=== PATIENT | female | born 1930 | race Caucasian/White ===

== ENCOUNTER 2018-02-26 15:25 | Inpatient (IN) | payer BC ==
--- NOTE | 2018-02-26 15:39 | PDOC ---
Rapid Medical Evaluation Time Seen by Provider: 02/26/18 15:35 Medical Evaluation: Allergies Allergy/AdvReac Type Severity Reaction Status Date / Time shellfish derived Allergy Intermediate Verified 01/19/13 03:58 I have performed a brief in-person evaluation of this patient. The patient presents with a chief complaint of: wasn't feeling well; saw Dr. Smith today, EKG shows 26bpm. Patient admits to being lightheaded. 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 Smith would like Dr. Coyne as consult Pertinent physical exam findings: HR = 31bpm. I have ordered the following: EKG, CXR, labs The patient will proceed to the ED for further evaluation. Discharge Disposition - Diagnosis Lightheaded - Referrals - Patient Instructions - Post Discharge Activity
--- NOTE | 2018-02-26 16:12 | PDOC ---
Attending Attestation - Resident Resident Name: Thomas Case - ED Attending Attestation I have performed the following: I have examined & evaluated the patient, The case was reviewed & discussed with the resident, I agree w/resident's findings & plan, Exceptions are as noted - HPI HPI: 02/26/18 16:46 87Y hx of hl, hypothryoidism, htn, presents with complaint of lightheadedness. Pt was originally evaluated at Dr. Cannon office and found to have a HR in the 30s with normal bp. On arrival pt ntoes sh ehas felt weak and occasionallightheaded for the past week. She denies any cp, sob, abd pain, n/v, fever/chills, increased leg swelling. pt on bystolic no new meds - Physicial Exam PE: 02/26/18 16:54 GENERAL: The patient is awake, alert, and fully oriented, Nontoxic - in no acute distress. HEAD: Normocephalic, atraumatic. EYES: extraocular movements intact, sclera anicteric, conjunctiva clear. ENT: Normal voice, Moist mucous membranes. NECK: Normal range of motion, supple LUNGS: Breath sounds equal, clear to auscultation bilaterally. No wheezes, no rhonchi, no rales. HEART: Extreme bradycardia ABDOMEN: Soft, nontender, normoactive bowel sounds. No guarding, no rebound. . No CVA tenderness EXTREMITIES: Normal range of motion, +1 bilateral pitting edema. NEUROLOGICAL: No facial assymetry, Normal speech, PSYCH: Normal mood, normal affect. SKIN: Warm, Dry, normal turgor, - Critical Care Time Total Critical Care Time: 40 Critical Care Statement: The care of this patient involved high complexity decision making to prevent further life threatening deterioration of the patient 's condition and/or to evaluate & treat vital organ system(s) failure or risk of failure. - Medical Decision Making 02/26/18 16:55 87-year-old with extreme bradycardia On EKG from the patient's doctor's office suspicious of third-degree heart block Upon arrival patient was immediately seen, placed in bed 10 with pacer pads applied The patient is otherwise asymptomatic, BP 136/81 Will obtain blood work to rule out metabolic derangements, will consult cardiology anticipate Admission to ICU 02/26/18 18:17 lbas reviewed pt bp normal mentating normally HR ranging from high teens to 20s. will admit to ICU for furthe rmangement Heart Score/ECG Review - ECG Impressions Comment:: Rate of 26 Disassociation between Atrial and ventricular beats suspcious for 3rd degree block
--- NOTE | 2018-02-26 16:12 | PDOC ---
History of Present Illness - General Chief Complaint: Lightheaded Stated Complaint: LIGHTHEADED (PCP SENT) Time Seen by Provider: 02/26/18 15:35 - History of Present Illness Initial Comments: 87 year old female with history of HLD, hypothyroidism, and HTN presenting from Dr. Smith's office with severe bradycardia. She denies any current symptoms but her heart rates were as low as 27 on the office EKG. Denies an chest pain, fevers, chills ,nausea, vomiting. diarrhea, or other symptoms. She did not take any of her medications today. 02/26/18 18:40 Past History - Past Medical History Allergies/Adverse Reactions: Allergies Allergy/AdvReac Type Severity Reaction Status Date / Time pistachio nut Allergy Unknown Verified 02/26/18 16:13 Home Medications: Ambulatory Orders Atorvastatin Ca [Lipitor] 10 mg PO HS #0 tablet 01/21/13 Diphenhydramine HCl [Benadryl Capsules -] 25 mg PO HS #0 capsule 01/21/13 Nebivolol [Bystolic -] 5 mg PO DAILY #0 tab 01/21/13 Aspirin [ASA -] 81 mg PO DAILY 02/26/18 Levothyroxine [Synthroid -] 100 mcg PO DAILY@0700 02/26/18 Raloxifene HCl 60 mg PO DAILY 02/26/18 Anemia: No Asthma: No Cancer: No Cardiac Disorders: No CVA: No COPD: No CHF: No DVT: No Dementia: No Diabetes: No GI Disorders: No Disorders: No HTN: Yes Hypercholesterolemia: Yes Liver Disease: No Seizures: No Thyroid Disease: Yes - Immunization History Immunization Up to Date: Yes - Suicide/Smoking/Psychosocial Hx Smoking Status: No Smoking History: Never smoked Have you smoked in the past 12 months: No Number of Cigarettes Smoked Daily: 0 Information on smoking cessation initiated: No Hx Alcohol Use: No Drug/Substance Use Hx: No Substance Use Type: None Hx Substance Use Treatment: No Review of Systems - Review of Systems Constitutional: No: Chills, Diaphoresis, Fever HEENTM: No: Eye Pain, Blurred Vision, Tearing Respiratory: No: Cough, Orthopnea, Shortness of Breath, Wheezing Cardiac (ROS): Yes: Irregular Heart Rate. No: Chest Pain, Edema, Lightheadedness, Palpitations, Syncope, Chest Tightness ABD/GI: No: Diarrhea, Nausea, Vomiting : No: Dysuria, Discharge, Frequency Musculoskeletal: No: Back Pain, Gout, Joint Pain, Joint Swelling Integumentary: No: Lesions, Lumps, Pallor, Pruritus Neurological: No: Headache, Numbness, Paresthesia, Tingling, Tremors Psychiatric: No: Anxiety, Depression Hematologic/Lymphatic: No: Anemia, Blood Clots, Easy Bleeding *Physical Exam - Vital Signs Last Vital Signs Temp Pulse Resp BP Pulse Ox 98.0 F 30 L 16 135/68 98 02/26/18 15:38 02/26/18 15:38 02/26/18 15:38 02/26/18 15:38 02/26/18 15:38 - Physical Exam General Appearance: Yes: Nourished, Appropriately Dressed. No: Apparent Distress HEENT: positive: EOMI, WILFRIDO, Normal ENT Inspection, Normal Voice Neck: positive: Trachea midline, Normal Thyroid, Supple. negative: Tender, Rigid Respiratory/Chest: positive: Lungs Clear, Normal Breath Sounds. negative: Chest Tender, Respiratory Distress, Accessory Muscle Use Cardiovascular: negative: Regular Rhythm, Regular Rate Gastrointestinal/Abdominal: positive: Normal Bowel Sounds, Flat, Soft. negative : Tender Musculoskeletal: positive: Normal Inspection. negative: Vertebral Tenderness Extremity: positive: Normal Capillary Refill, Normal Inspection, Normal Range of Motion. negative: Tender Integumentary: positive: Normal Color, Dry, Warm Neurologic: positive: Fully Oriented, Alert, Normal Mood/Affect, Normal Response , Motor Strength 5/5 ED Treatment Course - LABORATORY CBC & Chemistry Diagram: 02/26/18 16:04 02/26/18 16:04 Medical Decision Making - Medical Decision Making 87 year old female with PMH of hypertension, HLD, and hypothyroidism presenting with severe bradycardia and EKG demonstrating complete AV dissociation. P and QRS intervals march out at their own rhythm. Labs demonstrating MAURISIO, hypothyroidism (TSH> 4) but otherwise normal. Spoke to Dr. Alba (covering for [facility]) and he recommended keeping our pacer pads on and holding Bystolic. Patient signed out to Dr. Villarreal from medicine and Dr. Skelton from ICU. 02/26/18 18:45 *DC/Admit/Observation/Transfer Diagnosis at time of Disposition: Lightheaded - Discharge Dispostion Condition at time of disposition: Stable Decision to Admit order: Yes - Referrals - Patient Instructions - Post Discharge Activity
[2018-02-26 16:30] LABS: BASO % 0.6 % (0-2.0); EOS % 1.2 % (0-4.5); HEMATOCRIT 43.4 % (32.4-45.2); HEMOGLOBIN 14.6 GM/dL (10.7-15.3); MCH 32.8 pg (25.7-33.7); MCHC 33.6 g/dl (32.0-36.0); MEAN CELL VOLUME 97.5 fl (80-96); MEAN PLT VOLUME 9.2 fl (7.5-11.1); MONO % 7.6 % (3.8-10.2); NEUT % 71.6 % (42.8-82.8); PLATELET COUNT 191 K/MM3 (134-434); RBC 4.45 M/mm3 (3.60-5.2); RDW 13.6 % (11.6-15.6); WHITE BLOOD COUNT 10.4 K/mm3 (4.0-10.0)
[2018-02-26 16:39] LABS: ALBUMIN 3.2 g/dl (3.4-5.0); ANION GAP 11 MMOL/L (8-16); BLOOD UREA NITROGEN 29 mg/dL (7-18); CHLORIDE 108 mmol/L (98-107); CO2 25 mmol/L (21-32); GLUCOSE,RANDOM 95 mg/dL (74-106); POTASSIUM 4.5 mmol/L (3.5-5.1); SGOT/AST 55 U/L (15-37); SODIUM 144 mmol/L (136-145)
[2018-02-26 16:45] LABS: ALK PHOS 124 U/L (45-117); BILIRUBIN,TOTAL 0.6 mg/dL (0.2-1.0); CREATININE 1.5 mg/dL (0.55-1.02); SGPT/ALT 109 U/L (12-78); TOT PROT 6.7 g/dl (6.4-8.2)
--- NOTE | 2018-02-26 18:53 | CONSULT ---
Consultation: CONSULT REQUEST: We have been asked to medically evaluate this patient for critical care. HISTORY OF PRESENT ILLNESS: 87 y/o F w/PMH of HTN, hypothyroidism, HLD, mild dementia (AAOX3) presents to ER from PCPs office for severe bradycardia. Pt presents with daughter at bedside who also contributed to history. Pt was not feeling well 1 week ago with according to daughter she did not want to leave the house which is unusual for her and her memory was "fuzzier" than usual but otherwise was at close to her baseline mental status. Pt improved shortly after and was even able to go out to dinner last night with her daughter w/o any complaints. This AM pt again did not want to meet with her friends which is extremely unusual of her so her daughter took her to her PCP who found she had severe bradycardia and sent her to the ER. Pt denies CP, SOB, increased edema in LE, sick contacts, recent travel, being near pets, being outdoors in grassy areas, hx of lyme disease, palpitations, dizziness, fevers, chills, N/V, diarrhea, bloody stools. Pt has a son who has an arrhythmia but she does not know what kind. She only follows with PCP and sees no other doctors. Pt and daughter are also certain that she takes medications as prescribed (on bystolic 10mg at home). Pt lives alone and is able to complete her own ADLs. PMH: HTN, hypothyroidism, HLD, mild dementia (AAOX3) PSHx: Breast cyst removal SH: Denies ever smoking, social alcohol use (infrequent use), denies drug use FH: Son with arrhythmia but unknown type Allergies: NKDA Meds: Atorvastatin 10 mg, bystolic 10 mg, levothyroxine 100 mcg, reloxifene 60 mcg REVIEW OF SYSTEMS: CONSTITUTIONAL: Absent: fever, chills CARDIOVASCULAR: Absent: chest pain, syncope, palpitations, lightheadedness RESPIRATORY: Absent: cough, shortness of breath GASTROINTESTINAL: Absent: abdominal pain, nausea, vomiting, diarrhea, hematochezia GENITOURINARY: Absent: dysuria NEUROLOGIC: Absent: headache, dizziness PHYSICAL EXAMINATION Vital Signs - 24 hr 02/26/18 02/26/18 02/26/18 15:38 16:25 16:41 Temperature 98.0 F Pulse Rate 30 L Pulse Rate [ 25 L Right] Respiratory 16 18 Rate Blood Pressure 135/68 Blood Pressure 136/81 [Left Arm] O2 Sat by Pulse 98 95 100 Oximetry (%) 02/26/18 18:21 Temperature Pulse Rate Pulse Rate [ 21 L Right] Respiratory 18 Rate Blood Pressure Blood Pressure 105/87 [Left Arm] O2 Sat by Pulse Oximetry (%) GENERAL: Awake, alert, and fully oriented, in no acute distress. EYES:extraocular movements intact, sclera anicteric, conjunctiva clear. EARS, NOSE, THROAT: Ears normal, nares patent NECK: Normal range of motion LUNGS: Breath sounds equal, clear to auscultation bilaterally. No wheezes, and no crackles. No accessory muscle use. HEART: Bradycardic ABDOMEN: Soft, nontender, not distended, normoactive bowel sounds. LOWER EXTREMITIES: warm, well-perfused. No calf tenderness. 1+ pitting edema b/ l NEUROLOGICAL: Cranial nerves II-XII grossly intact. Normal speech. Gait not observed. PSYCHIATRIC: Cooperative. Good eye contact. Appropriate mood and affect. SKIN: Warm, dry Laboratory Results - last 24 hr 02/26/18 02/26/18 02/26/18 16:04 16:04 16:27 WBC 10.4 H RBC 4.45 Hgb 14.6 Hct 43.4 MCV 97.5 H MCH 32.8 MCHC 33.6 RDW 13.6 Plt Count 191 MPV 9.2 D Absolute Neuts (auto) 7.4 Neutrophils % 71.6 Lymphocytes % 19.0 D Monocytes % 7.6 Eosinophils % 1.2 Basophils % 0.6 Nucleated RBC % 0 Sodium 144 Potassium 4.5 Chloride 108 H Carbon Dioxide 25 Anion Gap 11 BUN 29 H Creatinine 1.5 H Creat Clearance w eGFR 32.85 Random Glucose 95 Calcium 9.0 Magnesium 2.1 Total Bilirubin 0.6 AST 55 H ALT 109 H Alkaline Phosphatase 124 H Creatine Kinase 45 Troponin I 0.02 Total Protein 6.7 Albumin 3.2 L TSH 02/26/18 16:27 WBC RBC Hgb Hct MCV MCH MCHC RDW Plt Count MPV Absolute Neuts (auto) Neutrophils % Lymphocytes % Monocytes % Eosinophils % Basophils % Nucleated RBC % Sodium Potassium Chloride Carbon Dioxide Anion Gap BUN Creatinine Creat Clearance w eGFR Random Glucose Calcium Magnesium Total Bilirubin AST ALT Alkaline Phosphatase Creatine Kinase Troponin I Total Protein Albumin TSH 4.65 H EKG: Bradycardic / Possibly 3rd degree AV block @ 26 bpm. QTc 458 ms ASSESSMENT/PLAN: 87 y/o F w/PMH of HTN, hypothyroidism, HLD, mild dementia (AAOX3) presents to ER from PCPs office for severe bradycardia. Admitted to ICU for severe bradycardia. Severe Bradycardia -Hemodynamically stable, pt w/o symptoms -Pacer pads placed. Transcutaneous pacing if needed. -Dopamine or atropine if needed -Cardiology consult -Hold bystolic -Utox, trend trops, Lyme -Echo Hypothyroidism -c/w levothyroxine -TSH elevated -DVT ppx -Heparin 5000 units sq TID -FEN -No fluids -Monitor electrolytes -NPO after midnight Dispo: Will monitor in ICU Visit type - Emergency Visit Emergency Visit: Yes Care time: The patient presented to the Emergency Department on the above date and was hospitalized for further evaluation of their emergent condition. - New Patient This patient is new to me today: Yes Date on this admission: 02/26/18 - Critical Care Critical Care patient: Yes Total Critical Care Time (in minutes): 45 Critical Care Statement: The care of this patient involved high complexity decision making to prevent further life threatening deterioration of the patient 's condition and/or to evaluate & treat vital organ system(s) failure or risk of failure.
--- NOTE | 2018-02-26 20:43 | HP ---
CHIEF COMPLAINT: Bradycardia, Nausea and Vomiting PCP: Dr. Smith HISTORY OF PRESENT ILLNESS: This is a 87 y/o woman with a significant medical history of Hypertension, Hypothyroidism, HLD, Mild Dementia. Who presents to the ED from her PCPs office for bradycardia. Patient denies any current symptoms but her heart rates were as low as 27 on the office EKG. Denies an chest pain, fevers, chills ,nausea, vomiting. diarrhea, or other symptoms. She did not take any of her medications today. ER course was notable for: (1) EKG- Severe Bradycadia 20's (2) UTI- +3 leukocyte esterase, 211 WBCs (3) MAURISIO 29/1.5 Recent Travel: None PAST MEDICAL HISTORY: See HPI PAST SURGICAL HISTORY: Social History: Smoking: Never Alcohol: None Drugs: None Lives alone, Independent Family History: Non-contributory Allergies pistachio nut Allergy (Unknown, Verified 02/26/18 16:13) HOME MEDICATIONS: Home Medications Medication Instructions Recorded Atorvastatin Ca [Lipitor] 10 mg PO HS #0 tablet 01/21/13 Diphenhydramine HCl [Benadryl 25 mg PO HS #0 capsule 01/21/13 Capsules -] Nebivolol [Bystolic -] 5 mg PO DAILY #0 tab 01/21/13 Aspirin [ASA -] 81 mg PO DAILY 02/26/18 Levothyroxine [Synthroid -] 100 mcg PO DAILY@0700 02/26/18 Raloxifene HCl 60 mg PO DAILY 02/26/18 REVIEW OF SYSTEMS CONSTITUTIONAL: generalized weakness, malaise Absent: fever, chills, diaphoresis, loss of appetite, weight change HEENT: Absent: rhinorrhea, nasal congestion, throat pain, throat swelling, difficulty swallowing, mouth swelling, ear pain, eye pain, visual changes CARDIOVASCULAR: Absent: chest pain, syncope, palpitations, irregular heart rate, lightheadedness , peripheral edema RESPIRATORY: Absent: cough, shortness of breath, dyspnea with exertion, orthopnea, wheezing, stridor, hemoptysis GASTROINTESTINAL: Absent: abdominal pain, abdominal distension, nausea, vomiting, diarrhea, constipation, melena, hematochezia GENITOURINARY: Absent: dysuria, frequency, urgency, hesitancy, hematuria, flank pain, genital pain MUSCULOSKELETAL: Absent: myalgia, arthralgia, joint swelling, back pain, neck pain SKIN: Absent: rash, itching, pallor HEMATOLOGIC/IMMUNOLOGIC: Absent: easy bleeding, easy bruising, lymphadenopathy, frequent infections ENDOCRINE: Absent: unexplained weight gain, unexplained weight loss, heat intolerance, cold intolerance NEUROLOGIC: dizziness Absent: headache, focal weakness or paresthesias, unsteady gait, seizure, mental status changes, bladder or bowel incontinence PSYCHIATRIC: Absent: anxiety, depression, suicidal or homicidal ideation, hallucinations. PHYSICAL EXAMINATION Vital Signs - 24 hr 02/26/18 02/26/18 02/26/18 15:38 16:25 16:41 Temperature 98.0 F Pulse Rate 30 L Pulse Rate [ Apical] Pulse Rate [ 25 L Right] Respiratory 16 18 Rate Blood Pressure 135/68 Blood Pressure 136/81 [Left Arm] O2 Sat by Pulse 98 95 100 Oximetry (%) 02/26/18 02/26/18 18:21 19:31 Temperature 98.1 F Pulse Rate Pulse Rate [ 22 L Apical] Pulse Rate [ 21 L Right] Respiratory 18 18 Rate Blood Pressure Blood Pressure 105/87 102/73 [Left Arm] O2 Sat by Pulse 97 Oximetry (%) GENERAL: Awake, alert, and fully oriented, in no acute distress. HEAD: Normal with no signs of trauma. EYES: Pupils equal, round and reactive to light, extraocular movements intact, sclera anicteric, conjunctiva clear. No lid lag. EARS, NOSE, THROAT: Ears normal, nares patent, oropharynx clear without exudates. Moist mucous membranes. NECK: Normal range of motion, supple without lymphadenopathy, JVD, or masses. LUNGS: Breath sounds equal, clear to auscultation bilaterally. No wheezes, and no crackles. No accessory muscle use. HEART: Sinus bradycardia rate and rhythm, normal S1 and S2 Systolic murmur grade 3/6, rub or gallop. ABDOMEN: Soft, nontender, not distended, normoactive bowel sounds, no guarding, no rebound, no masses. No hepatomegaly or splenomegaly. MUSCULOSKELETAL: Normal range of motion at all joints. No bony deformities or tenderness. No CVA tenderness. UPPER EXTREMITIES: 2+ pulses, warm, well-perfused. No cyanosis. No clubbing. No peripheral edema. LOWER EXTREMITIES: 2+ pulses, warm, well-perfused. No calf tenderness. No peripheral edema. NEUROLOGICAL: Cranial nerves II-XII intact. Normal speech. Gait not observed. PSYCHIATRIC: Cooperative. Good eye contact. Appropriate mood and affect. SKIN: Warm, dry, normal turgor, no rashes or lesions noted, normal capillary refill. Laboratory Results - last 24 hr 02/26/18 02/26/18 02/26/18 16:04 16:04 16:27 WBC 10.4 H RBC 4.45 Hgb 14.6 Hct 43.4 MCV 97.5 H MCH 32.8 MCHC 33.6 RDW 13.6 Plt Count 191 MPV 9.2 D Absolute Neuts (auto) 7.4 Neutrophils % 71.6 Lymphocytes % 19.0 D Monocytes % 7.6 Eosinophils % 1.2 Basophils % 0.6 Nucleated RBC % 0 Sodium 144 Potassium 4.5 Chloride 108 H Carbon Dioxide 25 Anion Gap 11 BUN 29 H Creatinine 1.5 H Creat Clearance w eGFR 32.85 Random Glucose 95 Calcium 9.0 Magnesium 2.1 Total Bilirubin 0.6 AST 55 H ALT 109 H Alkaline Phosphatase 124 H Creatine Kinase 45 Troponin I 0.02 Total Protein 6.7 Albumin 3.2 L TSH 02/26/18 16:27 WBC RBC Hgb Hct MCV MCH MCHC RDW Plt Count MPV Absolute Neuts (auto) Neutrophils % Lymphocytes % Monocytes % Eosinophils % Basophils % Nucleated RBC % Sodium Potassium Chloride Carbon Dioxide Anion Gap BUN Creatinine Creat Clearance w eGFR Random Glucose Calcium Magnesium Total Bilirubin AST ALT Alkaline Phosphatase Creatine Kinase Troponin I Total Protein Albumin TSH 4.65 H ASSESSMENT/PLAN: This is a 87 y/o woman admitted for Severe Bradycardia, MAURISIO, UTI, Acute Transaminitis for further evaluation of their emergent condition Plan: 1. Cardiology: Bradycardia Will admit to ICU Cardiac Monitoring Pacer PADs Cardiology consult- per ED aware and following Bedrest Monitor CBC, BMP Serial Enzymes EKG- third degree heart block Chest Xray- reviewed NPO Gentle IVF 2. Urology: UTI UA- +3 leukocyte esterase, 211 WBCs Urine Culture-pending Monitor CBC Monitor vitals 3. Nephrology: MAURISIO Likely secondary to dehydration vs nephrotic syndrome Will continue gentle IVF Monitor BMP Consider Nephrology consult if condition worsens 4. GI: Acute Transaminitis Possibly due to stone Gallbladder US-pending Monitor LFTs FEN- Gentle IVF, Replete lytes prn, NPO DVT ppx- SCDs, Heparin SQ Code Status: Full Code Dispo: Requires Inpatient Care Problem List - Problem (1) Lightheaded Code(s): R42 - DIZZINESS AND GIDDINESS Visit type - Emergency Visit Emergency Visit: Yes ED Registration Date: 02/26/18 Care time: The patient presented to the Emergency Department on the above date and was hospitalized for further evaluation of their emergent condition. - New Patient This patient is new to me today: Yes Date on this admission: 02/27/18 - Critical Care Critical Care patient: Yes Total Critical Care Time (in minutes): 50 Critical Care Statement: The care of this patient involved high complexity decision making to prevent further life threatening deterioration of the patient 's condition and/or to evaluate & treat vital organ system(s) failure or risk of failure. Hospitalist Screening - Colonoscopy Questionnaire Colonoscopy Questionnaire: Colonoscopy Questionnaire - Patient: 50 - 75 years old and never had a screening colonoscopy: No History of colon or rectal polyps, or CA: No History of IBD, Crohn's disease or UC: No History of abdominal radiation therapy as a child: No - Relative: 1 with colon or rectal CA, or polyps at age 60 or younger: No Colon or rectal CA diagnosed at age 45 or younger: No Multiple relatives with colon or rectal CA: No - Outcome: Screening Result: Negative Screen
[2018-02-26 20:52] VITALS: BMI 35.1
[2018-02-26] MEDS ORDERED: SODIUM CHLORIDE 0.9%/KCL 20 MEQ/1,000 ML INFUS.BAG IV SCH (21:00)
[2018-02-26] MEDS ORDERED: SODIUM CHLORIDE 1,000 ML IV SCH (21:15)
[2018-02-26] MEDS ORDERED: MUPIROCIN 2% TOPICAL OINTMENT FOR DECOLONIZATION NS SCH (22:00)
[2018-02-26] MEDS ORDERED: CHLORHEXIDINE GLUCONATE 4% CLEANSER FOR DECOLONIZATION TP SCH (22:00)
[2018-02-26] MEDS ORDERED: HEPARIN NA (PORCINE) 5,000 UNITS/ML 1ML VIAL SQ SCH (22:00)
[2018-02-26] MEDS ORDERED: ATORVASTATIN CA 10 MG TABLET (FP) PO SCH (22:00)
[2018-02-26 22:16] LABS: URINE APPEARANCE CLOUDY; URINE BILIRUBIN NEGATIVE (<2.0 mg/dL); URINE COLOR YELLOW; URINE GLUCOSE (UA) NEGATIVE (NEGATIVE); URINE KETONE NEGATIVE (NEGATIVE); URINE NITRITE NEGATIVE (NEGATIVE); URINE UROBILINOGEN NEGATIVE mg/dL (0.2-1.0)
[2018-02-26 22:34] LABS: URINE AMPHETAMINES NEGATIVE ng/ml (CUTOFF=500); URINE BARBITURATES NEGATIVE ng/ml (CUTOFF=200); URINE BENZODIAZEPINES NEGATIVE ng/ml (CUTOFF=200)
[2018-02-26 22:35] LABS: COCAINE, UR NEGATIVE ng/ml (CUTOFF=300); METHADONE, UR NEGATIVE ng/ml (CUTOFF=300); OPIATES, URI NEGATIVE ng/ml (CUTOFF=300); PHENCYCLIDINE,URINE NEGATIVE ng/ml (CUTOFF=25)
[2018-02-26 22:45] LABS: URINE LEUK ESTERASE 3+ (NEGATIVE); URINE PROTEIN 1+ (NEGATIVE)
[2018-02-26 22:54] LABS: EPI CELLS FEW /HPF (FEW); URINE BACTERIA RARE /hpf (NONE SEEN); URINE HYALINE CAST 2 /lpf; URINE MUCUS RARE
[2018-02-27] MEDS ORDERED: DOPAMINE 400 MG/D5W - 400,000 MCG/250 ML INFUS.BAG IVPB SCH (00:45)
[2018-02-27 02:03] VITALS: BP 163/55; PULSE 31
[2018-02-27 02:39] VITALS: TEMP 97.8
[2018-02-27] MEDS ORDERED: CEFTRIAXONE 1 GM in DEXTROSE 5%-WATER - 50 ML IVPB ONE (02:58)
[2018-02-27] MEDS ORDERED: DEXTROSE 5%-WATER - 50 ML IVPB ONE (03:04)
[2018-02-27] MEDS ORDERED: cefTRIAXone SODIUM 1 GM VIAL ONE (03:04)
--- NOTE | 2018-02-27 03:06 | PN ---
Progress Note (short form) - Note Progress Note: The patient arrived to ICU around 8 PM. At that time her VS: BP 117/70, HR 37, RR 14. She was complaining of right lower extremity cramps, below her knee, no chest pain, SOB, dizziness, lightheadedness, no palpitations. Her HR was ranging from 14s to 40s. Around midnight, she became hypotensive, 46/34, MAP 39 , HR 21. She was started on Dopamine. Motor[employer] Technician Dr Yesi Ruiz ( covering for Dr Coyne) was notified and accepted the patient for transfer to [facility] with transvenous pacemaker placed before transfer. [facility] didn't have open beds in CCU available for the patient. C was called. Dr Bills/Sharee Harmon accepted her for transfer even without temporary pacemaker. They considered it to be safe for the patient. Admitting diagnosis: high degree AV heart block with narrow QRS. The patient remained stable, without major complaints. VS 150/58, HR 72, Oxyg Sat 97, while on Dopamine 3 mcg/min. The patient and her daughter were notified about transfer and agreed to it. Ambulance with CCU nurse arrived and the patient left. Discussed with Dr Puri and Dr Terry and primary team. Problem List - Problems (1) Bradycardia Code(s): R00.1 - BRADYCARDIA, UNSPECIFIED (2) Hypothyroidism Code(s): E03.9 - HYPOTHYROIDISM, UNSPECIFIED (3) Hypertension Code(s): I10 - ESSENTIAL (PRIMARY) HYPERTENSION (4) Hypertension Code(s): I10 - ESSENTIAL (PRIMARY) HYPERTENSION (5) High degree atrioventricular block Code(s): I44.39 - OTHER ATRIOVENTRICULAR BLOCK
[2018-02-27] MEDS ORDERED: LEVOTHYROXINE NA 100 MCG TABLET (FP) PO SCH (07:00)
--- NOTE | 2018-02-28 19:36 | EKG ---
Test Reason : Blood Pressure : / mmHG Vent. Rate : 026 BPM Atrial Rate : 026 BPM P-R Int : 000 ms QRS Dur : 122 ms QT Int : 698 ms P-R-T Axes : 035 -06 034 degrees QTc Int : 458 ms SINUS RHYTHM WITH COMPLETE HEART BLOCK RIGHT BUNDLE BRANCH BLOCK ABNORMAL ECG WHEN COMPARED WITH ECG OF 19-JAN-2013 06:19, THERE IS NOW COMPLETE HEART BLOCK RIGHT BUNDLE BRANCH BLOCK HAS REPLACED LEFT BUNDLE BRANCH BLOCK Confirmed by LADONNA REY MD ([id number]) on 02/28/2018 7:36:18 PM Referred By: Confirmed By:LADONNA REY MD
== END 2018-02-27 03:00 | disposition short-term general hospital (02) | DRG 309 ==
LOC: JER 15:25 → JERBED 16:56 → JICU 20:07
PROVIDERS: ADMIT Internal Medicine; ATTEND Family Medicine
DX: I44.2 Atrioventricular block, complete (principal); N39.0 Urinary tract infection, site not specified; N17.9 Acute kidney failure, unspecified; R00.1 Bradycardia, unspecified; I10 Essential (primary) hypertension; E03.9 Hypothyroidism, unspecified; E78.5 Hyperlipidemia, unspecified; F03.90 Unspecified dementia, unspecified severity, without behavioral disturbance, psychotic disturbance, mood disturbance, and anxiety
CPT/HCPCS: 36415; 71045-TC-FY; 76700-TC; 80053; 80307; 81003; 81015; 82550; 83735; 84443; 84484; 85025; 93005; 93010; 93970-TC; 99284-25; J1644; J7030